=== PATIENT | male | born 1940 | race Caucasian/White ===

== ENCOUNTER 2017-09-28 10:14 | Inpatient (IN) | payer OTHER ==
[~2017-09-28] VITALS: Ht 177.8 cm; Wt 79.3 kg
[~2017-09-28 10:14] MED LIST: ADVIL,NUPRIN,M200 MG PO; ALTACE10 MG PO; BACTROBAN OINTM22 GM TP; BYSTOLIC10 MG PO; D3 + K2 DOTS 11 EACH PO; FISH OIL 1,0001 EAC7 PO; HYDROCHLOROTHIA25 MG PO; LEVAQUIN500 MG PO; LIPITOR40 MG PO; MEDROL DOSEPAK4 MG PO; METRO CREAM 0.745 GM TP; MULTI-VITAMIN1 EAC4 PO; NORVASC10 MG PO; PREDNISONE20 MG PO; TAMIFLU75 MG PO; TAMSULOSIN HCL0.4 MG PO; TRICOR145 MG PO
[2017-09-28 12:20] LABS: HEMATOCRIT 28.9 % (38.0-50.0); HEMOGLOBIN 10.3 G/DL (12.5-16.6); MCHC 35.6 G/DL (30.0-36.0); MCV 89.8 FL (86-99); RBC DIS.WIDTH-CV 15.3 % (11.8-14.6); RBC DIS.WIDTH-SD 50.7 % (39-53); RED BLOOD COUNT 3.22 M/uL (4.00-5.50); WHITE BLOOD COUNT 6.6 K/uL (4.1-10.2)
[2017-09-28 12:28] LABS: CHLORIDE 89 mEq/L (99-109); POTASSIUM 4.2 mEq/L (3.7-5.4)
[2017-09-28 12:30] LABS: GLUCOSE 111 mg/dL (70-99)
[2017-09-28 12:34] LABS: CREATININE 0.8 mg/dL (0.6-1.3); GFR ESTIMATE (CALCULATED) > 59 mL/min/ (58.99-99999)
[2017-09-28 12:35] LABS: UREA NITROGEN (BUN) 21 mg/dL (9-23)
[2017-09-28 12:37] LABS: SODIUM 124 mEq/L (136-147)
[2017-09-28 13:27] LABS: TROP-I INTERPRETATION NEGATIVE; TROPONIN-I 0.03 ng/mL (0.0-0.30)
[2017-09-28 13:29] LABS: BASOPHIL (%) 0.3 % (0-1); EOSINOPHIL (%) 0 % (0-5); IMM.PLATELET FRACTION 5.1 (1-7); IMMATURE GRANULOCYTE (%) 0.8 % (0.0-0.7); LYMPHOCYTE (%) 19.1 % (15-42); LYMPHOCYTE COUNT 1.3 K/uL (1.0-2.8); MONOCYTE (%) 1.5 % (3-12); MONOCYTE COUNT 0.1 K/uL (0-0.8); NEUTROPHIL (%) 78.3 % (45-76); NEUTROPHIL COUNT 5.1 K/uL (1.8-6.4); PLAT.SUFFICIENCY DECREASED; PLATELET COUNT 33 K/uL (156-360)
[2017-09-28 14:12] LABS: APPEARANCE CLEAR ((CLEAR)); BILIRUBIN NEGATIVE; BLOOD SMALL; COLOR YELLOW ((YELLOW)); GLUCOSE (STRIP) NEGATIVE; KETONES NEGATIVE; LEUKOCYTES NEGATIVE; NITRITE NEGATIVE; PROTEIN (STRIP) NEGATIVE; SPECIFIC GRAVITY 1.006 (1.000-1.030); UROBILINOGEN 0.2 MG/DL (0.2-1.0)
[2017-09-28 14:15] LABS: BACTERIA NONE SEEN /HPF; EPITHELIAL CELLS NONE SEEN /HPF; MUCUS NONE SEEN /LPF; RED BLOOD CELLS 0-5 /HPF (0-5); UCUL ADDED? NO; WHITE BLOOD CELLS 0-5 /HPF (0-5)
[2017-09-28] MEDS ORDERED: TYLENOL EXTRA500 MG PO (18:07)
[2017-09-28 20:47] VITALS: BP 129/59
[2017-09-28 23:41] VITALS: BP 126/60
[2017-09-29 03:51] VITALS: BP 128/60
[2017-09-29 06:38] LABS: MCH 31.3 PG (29.0-34.0); MCHC 34.6 G/DL (30.0-36.0); MCV 90.3 FL (86-99); RBC DIS.WIDTH-CV 15.4 % (11.8-14.6); RBC DIS.WIDTH-SD 51.1 % (39-53); RED BLOOD COUNT 2.88 M/uL (4.00-5.50); WHITE BLOOD COUNT 5.4 K/uL (4.1-10.2)
[2017-09-29 06:56] LABS: CHLORIDE 92 MEQ/L (99-109); CREATININE 0.8 MG/DL (0.6-1.3); GFR ESTIMATE (CALCULATED) > 59 mL/min/ (58.99-99999); GLUCOSE 105 mg/dL (70-99); POTASSIUM 3.4 MEQ/L (3.7-5.4); SODIUM 127 MEQ/L (136-147); UREA NITROGEN (BUN) 15 mg/dL (9-23)
[2017-09-29 07:18] LABS: BASOPHIL (%) 0.2 % (0-1); EOSINOPHIL (%) 0.2 % (0-5); IMM.PLATELET FRACTION 3.4 (1-7); IMMATURE GRANULOCYTE (%) 0.7 % (0.0-0.7); LYMPHOCYTE (%) 21.9 % (15-42); LYMPHOCYTE COUNT 1.2 K/uL (1.0-2.8); MONOCYTE (%) 1.1 % (3-12); MONOCYTE COUNT 0.1 K/uL (0-0.8); NEUTROPHIL (%) 75.9 % (45-76); NEUTROPHIL COUNT 4.1 K/uL (1.8-6.4); PLAT.SUFFICIENCY VERY DECREASED; PLATELET COUNT 30 K/uL (156-360)
[2017-09-29 08:12] VITALS: BP 129/60
[2017-09-29 12:14] VITALS: BP 103/55
[2017-09-29 15:12] VITALS: BP 97/53
[2017-09-29 19:33] VITALS: BP 99/53
[2017-09-30] VITALS (7 sets, daily range): BP systolic 103–137; BP diastolic 53–67
[2017-09-30 06:51] LABS: HEMATOCRIT 25.8 % (38.0-50.0); MCH 31.4 PG (29.0-34.0); MCHC 34.9 G/DL (30.0-36.0); MCV 89.9 FL (86-99); RBC DIS.WIDTH-CV 15.1 % (11.8-14.6); RBC DIS.WIDTH-SD 49.6 % (39-53); RED BLOOD COUNT 2.87 M/uL (4.00-5.50); WHITE BLOOD COUNT 5.6 K/uL (4.1-10.2)
[2017-09-30 07:16] LABS: ALBUMIN 2.5 G/DL (3.2-4.8); ALKALINE PHOSPHATASE 46 IU/L (3-129); ALT (GPT) 17 IU/L (3-49); AST (GOT) 19 IU/L (2-34); CHLORIDE 98 MEQ/L (99-109); CREATININE 0.6 MG/DL (0.6-1.3); DIRECT BILIRUBIN 0.2 mg/dL (0.0-0.3); GFR ESTIMATE (CALCULATED) > 59 mL/min/ (58.99-99999); GLUCOSE 145 mg/dL (70-99); LACTATE DEHYDROGENASE 272 IU/L (20-246); MAGNESIUM 1.7 mg/dl (1.3-2.7); SODIUM 131 MEQ/L (136-147); TOTAL PROTEIN 5.3 G/DL (6.4-8.3); UREA NITROGEN (BUN) 19 mg/dL (9-23)
[2017-09-30 07:17] LABS: POTASSIUM 4.2 MEQ/L (3.7-5.4); TOTAL BILIRUBIN 0.8 MG/DL (0.0-1.0)
[2017-09-30 07:34] LABS: ABS NEUTROPHIL COUNT 4.5; ANISOCYTOSIS 1+; ATYPICAL LYMPHOCYTE 1.8 %; BAND NEUTROPHILS 1.8 % (0-8.0); EOSINOPHIL ABS CT 0; IMM.PLATELET FRACTION 5.2 (1-7); MICROCYTOSIS 1+; PLAT.SUFFICIENCY DECREASED; PLATELET COUNT 35 K/uL (156-360); POIKILOCYTOSIS 2+; POLYCHROMASIA 1+; TEAR DROP CELLS 1+
[2017-09-30 07:38] LABS: SEG.NEUTROPHILS 79.4 % (46.0-76.0)
[2017-10-01 05:59] LABS: HEMATOCRIT 26.2 % (38.0-50.0); HEMOGLOBIN 8.9 G/DL (12.5-16.6); MCH 31.4 PG (29.0-34.0); MCV 92.6 FL (86-99); RBC DIS.WIDTH-CV 15.5 % (11.8-14.6); RBC DIS.WIDTH-SD 52.7 % (39-53); RED BLOOD COUNT 2.83 M/uL (4.00-5.50); WHITE BLOOD COUNT 4.9 K/uL (4.1-10.2)
[2017-10-01 06:17] LABS: CHLORIDE 99 MEQ/L (99-109); CREATININE 0.6 MG/DL (0.6-1.3); GFR ESTIMATE (CALCULATED) > 59 mL/min/ (58.99-99999); GLUCOSE 123 mg/dL (70-99); POTASSIUM 4.8 MEQ/L (3.7-5.4); SODIUM 132 MEQ/L (136-147); UREA NITROGEN (BUN) 17 mg/dL (9-23)
[2017-10-01 06:24] LABS: ABS NEUTROPHIL COUNT 3.7; ATYPICAL LYMPHOCYTE 2.6 %; EOSINOPHIL ABS CT 0; IMM.PLATELET FRACTION 3.9 (1-7); LYMPHOCYTES 19.8 % (15.0-45.0); MONOCYTES 1.7 % (0-9.0); PLAT.SUFFICIENCY VERY DECREASED; PLATELET COUNT 44 K/uL (156-360); SEG.NEUTROPHILS 75.9 % (46.0-76.0); SMUDGE CELLS 4.3
[2017-10-01 07:53] VITALS: BP 159/70
[2017-10-01 09:08] LABS: IMM.RETIC FRACTION 16.1 % (3-19); RETIC HGB EQUIVALENT 28.1 (28-36)
[2017-10-01 09:09] LABS: ALBUMIN 2.6 G/DL (3.2-4.8); ALKALINE PHOSPHATASE 48 IU/L (3-129); ALT (GPT) 20 IU/L (3-49); AST (GOT) 23 IU/L (2-34); TOTAL BILIRUBIN 0.9 MG/DL (0.0-1.0)
[2017-10-01 09:12] LABS: RETICULOCYTE COUNT 2.8 % (0.5-1.8)
[2017-10-01 14:27] LABS: HEMATOCRIT 26.2 % (38.0-50.0); MCH 31.5 PG (29.0-34.0); MCHC 34.4 G/DL (30.0-36.0); MCV 91.6 FL (86-99); PLATELET COUNT 53 K/uL (156-360); RBC DIS.WIDTH-CV 15.5 % (11.8-14.6); RBC DIS.WIDTH-SD 52.1 % (39-53); RED BLOOD COUNT 2.86 M/uL (4.00-5.50); WHITE BLOOD COUNT 4.2 K/uL (4.1-10.2)
[2017-10-01 14:39] LABS: INTER. NORMALIZED RATIO 1.2
[2017-10-01 14:42] LABS: PTT 27.9 SEC (25-37)
[2017-10-01 14:45] LABS: DIRECT BILIRUBIN 0.2 mg/dL (0.0-0.3); TOTAL BILIRUBIN 0.9 MG/DL (0.0-1.0)
[2017-10-01 15:43] VITALS: BP 106/54
[2017-10-01 15:47] LABS: ABS NEUTROPHIL COUNT 3.8; ANISOCYTOSIS 1+; BAND NEUTROPHILS 10.4 % (0-8.0); EOSINOPHIL ABS CT 0; HYPOCHROMASIA 2+; MICROCYTOSIS 1+; MONOCYTES 0.9 % (0-9.0); PLAT.SUFFICIENCY DECREASED; POIKILOCYTOSIS 2+; TEAR DROP CELLS 1+
[2017-10-02 00:13] VITALS: BP 128/63
[2017-10-02 06:49] LABS: HEMATOCRIT 23.8 % (38.0-50.0); HEMOGLOBIN 8.1 G/DL (12.5-16.6); MCH 31.9 PG (29.0-34.0); MCV 93.7 FL (86-99); RBC DIS.WIDTH-CV 15.4 % (11.8-14.6); RBC DIS.WIDTH-SD 53.7 % (39-53); RED BLOOD COUNT 2.54 M/uL (4.00-5.50); WHITE BLOOD COUNT 3.4 K/uL (4.1-10.2)
[2017-10-02 07:01] VITALS: BP 147/67
[2017-10-02 07:15] LABS: CHLORIDE 101 MEQ/L (99-109); CREATININE 0.7 MG/DL (0.6-1.3); GFR ESTIMATE (CALCULATED) > 59 mL/min/ (58.99-99999); POTASSIUM 4.4 MEQ/L (3.7-5.4); SODIUM 136 MEQ/L (136-147); UREA NITROGEN (BUN) 20 mg/dL (9-23)
[2017-10-02 07:18] LABS: GLUCOSE 82 mg/dL (70-99)
[2017-10-02 07:23] LABS: BASOPHIL (%) 0 % (0-1); EOSINOPHIL (%) 0 % (0-5); IMM.PLATELET FRACTION 2.3 (1-7); IMMATURE GRANULOCYTE (%) 0.3 % (0.0-0.7); LYMPHOCYTE (%) 19.2 % (15-42); LYMPHOCYTE COUNT 0.7 K/uL (1.0-2.8); MONOCYTE (%) 1.7 % (3-12); MONOCYTE COUNT 0.1 K/uL (0-0.8); NEUTROPHIL (%) 78.8 % (45-76); NEUTROPHIL COUNT 2.7 K/uL (1.8-6.4); PLAT.SUFFICIENCY DECREASED; PLATELET COUNT 38 K/uL (156-360)
[2017-10-02 15:11] VITALS: BP 133/62
[2017-10-02 23:33] VITALS: BP 137/63
[2017-10-03] VITALS (7 sets, daily range): BP systolic 110–140; BP diastolic 56–68
[2017-10-03 06:30] LABS: HEMATOCRIT 22.6 % (38.0-50.0); HEMOGLOBIN 7.4 G/DL (12.5-16.6); MCH 30.3 PG (29.0-34.0); MCHC 32.7 G/DL (30.0-36.0); MCV 92.6 FL (86-99); RBC DIS.WIDTH-CV 15.3 % (11.8-14.6); RBC DIS.WIDTH-SD 52.2 % (39-53); RED BLOOD COUNT 2.44 M/uL (4.00-5.50); WHITE BLOOD COUNT 2.3 K/uL (4.1-10.2)
[2017-10-03 06:53] LABS: CHLORIDE 100 MEQ/L (99-109); CREATININE 0.7 MG/DL (0.6-1.3); GFR ESTIMATE (CALCULATED) > 59 mL/min/ (58.99-99999); POTASSIUM 4.4 MEQ/L (3.7-5.4); SODIUM 136 MEQ/L (136-147); UREA NITROGEN (BUN) 18 mg/dL (9-23)
[2017-10-03 07:04] LABS: GLUCOSE 165 mg/dL (70-99)
[2017-10-03 07:14] LABS: ABS NEUTROPHIL COUNT 1.8; ANISOCYTOSIS 1+; EOSINOPHIL ABS CT 0; HYPOCHROMASIA 1+; IMM.PLATELET FRACTION 2.3 (1-7); LYMPHOCYTES 22.6 % (15.0-45.0); MICROCYTOSIS 1+; PLAT.SUFFICIENCY VERY DECREASED; PLATELET COUNT 27 K/uL (156-360); POIKILOCYTOSIS 2+; POLYCHROMASIA 1+; SEG.NEUTROPHILS 77.4 % (46.0-76.0); SPHEROCYTES 1+; TEAR DROP CELLS 1+
[2017-10-03 08:23] LABS: ALBUMIN 2.2 G/DL (3.2-4.8); ALKALINE PHOSPHATASE 40 IU/L (3-129); ALT (GPT) 16 IU/L (3-49); AST (GOT) 29 IU/L (2-34)
[2017-10-03 08:24] LABS: TOTAL BILIRUBIN 1.1 MG/DL (0.0-1.0); TOTAL PROTEIN 4.2 G/DL (6.4-8.3)
[2017-10-04 05:59] LABS: HEMATOCRIT 25.8 % (38.0-50.0); HEMOGLOBIN 8.9 G/DL (12.5-16.6); MCH 32.1 PG (29.0-34.0); MCHC 34.5 G/DL (30.0-36.0); MCV 93.1 FL (86-99); RBC DIS.WIDTH-SD 51.4 % (39-53); RED BLOOD COUNT 2.77 M/uL (4.00-5.50); WHITE BLOOD COUNT 4.1 K/uL (4.1-10.2)
[2017-10-04 06:32] LABS: CHLORIDE 102 MEQ/L (99-109); CREATININE 0.7 MG/DL (0.6-1.3); GFR ESTIMATE (CALCULATED) > 59 mL/min/ (58.99-99999); GLUCOSE 182 mg/dL (70-99); POTASSIUM 4.2 MEQ/L (3.7-5.4); SODIUM 136 MEQ/L (136-147); UREA NITROGEN (BUN) 27 mg/dL (9-23)
[2017-10-04 06:39] LABS: ABS NEUTROPHIL COUNT 3.5; ANISOCYTOSIS 1+; ATYPICAL LYMPHOCYTE 2.6 %; BAND NEUTROPHILS 1.8 % (0-8.0); BASOPHILS 0.9 %; EOSINOPHIL ABS CT 0; HYPOCHROMASIA 1+; LYMPHOCYTES 11.4 % (15.0-45.0); MICROCYTOSIS 1+; OVALOCYTES 1+; PLAT.SUFFICIENCY DECREASED; POIKILOCYTOSIS 2+; POLYCHROMASIA 1+; SEG.NEUTROPHILS 83.3 % (46.0-76.0); TEAR DROP CELLS 1+; TOXIC GRANULATION 1+
[2017-10-04 06:40] LABS: PLATELET COUNT 37 K/uL (156-360)
[2017-10-04 06:58] VITALS: BP 138/63
[2017-10-04 15:11] VITALS: BP 138/63
[2017-10-05 00:16] VITALS: BP 125/58
[2017-10-05 07:30] LABS: HEMATOCRIT 27.3 % (38.0-50.0); HEMOGLOBIN 9.3 G/DL (12.5-16.6); MCH 31.7 PG (29.0-34.0); MCHC 34.1 G/DL (30.0-36.0); MCV 93.2 FL (86-99); RBC DIS.WIDTH-CV 15.3 % (11.8-14.6); RBC DIS.WIDTH-SD 52.8 % (39-53); RED BLOOD COUNT 2.93 M/uL (4.00-5.50)
[2017-10-05 07:53] VITALS: BP 138/67
[2017-10-05 07:57] LABS: CHLORIDE 100 MEQ/L (99-109); CREATININE 0.8 MG/DL (0.6-1.3); GFR ESTIMATE (CALCULATED) > 59 mL/min/ (58.99-99999); POTASSIUM 4.2 MEQ/L (3.7-5.4); SODIUM 136 MEQ/L (136-147); UREA NITROGEN (BUN) 27 mg/dL (9-23)
[2017-10-05 07:58] LABS: GLUCOSE 116 mg/dL (70-99)
[2017-10-05 08:14] LABS: BASOPHIL (%) 0 % (0-1); EOSINOPHIL (%) 0 % (0-5); IMM.PLATELET FRACTION 3.3 (1-7); IMMATURE GRANULOCYTE (%) 0.5 % (0.0-0.7); LYMPHOCYTE (%) 25.8 % (15-42); MONOCYTE COUNT 0.1 K/uL (0-0.8); NEUTROPHIL (%) 71.7 % (45-76); NEUTROPHIL COUNT 2.9 K/uL (1.8-6.4); PLAT.SUFFICIENCY DECREASED; PLATELET COUNT 37 K/uL (156-360)
[2017-10-05 16:00] VITALS: BP 129/64
[2017-10-05 20:21] VITALS: BP 120/58
[2017-10-06] VITALS (9 sets, daily range): BP systolic 107–161; BP diastolic 57–69
[2017-10-06 09:12] LABS: BASOPHIL (%) 0.2 % (0-1); EOSINOPHIL (%) 0 % (0-5); IMMATURE GRANULOCYTE (%) 0.7 % (0.0-0.7); LYMPHOCYTE (%) 26.4 % (15-42); LYMPHOCYTE COUNT 1.1 K/uL (1.0-2.8); MCH 30.9 PG (29.0-34.0); MCHC 33.3 G/DL (30.0-36.0); MCV 92.8 FL (86-99); MONOCYTE (%) 3.2 % (3-12); MONOCYTE COUNT 0.1 K/uL (0-0.8); NEUTROPHIL (%) 69.5 % (45-76); NEUTROPHIL COUNT 2.8 K/uL (1.8-6.4); RBC DIS.WIDTH-CV 15.3 % (11.8-14.6); RBC DIS.WIDTH-SD 52.1 % (39-53); RED BLOOD COUNT 2.91 M/uL (4.00-5.50); WHITE BLOOD COUNT 4.1 K/uL (4.1-10.2)
[2017-10-06 09:38] LABS: IMM.PLATELET FRACTION 4.4 (1-7); PLAT.SUFFICIENCY VERY DECREASED
[2017-10-06 10:37] LABS: PLATELET COUNT 21 K/uL (156-360)
[2017-10-07 00:16] VITALS: BP 136/63
[2017-10-07 07:09] VITALS: BP 148/64
[2017-10-07 09:30] LABS: ALBUMIN 2.6 G/DL (3.2-4.8); ALKALINE PHOSPHATASE 48 IU/L (3-129); ALT (GPT) 17 IU/L (3-49); AST (GOT) 29 IU/L (2-34); CHLORIDE 97 MEQ/L (99-109); CREATININE 0.8 MG/DL (0.6-1.3); GFR ESTIMATE (CALCULATED) > 59 mL/min/ (58.99-99999); GLUCOSE 108 mg/dL (70-99); POTASSIUM 3.7 MEQ/L (3.7-5.4); SODIUM 136 MEQ/L (136-147); TOTAL BILIRUBIN 1.4 MG/DL (0.0-1.0); TOTAL PROTEIN 4.5 G/DL (6.4-8.3); UREA NITROGEN (BUN) 27 mg/dL (9-23)
[2017-10-07 10:31] LABS: HEMATOCRIT 23.1 % (38.0-50.0); HEMOGLOBIN 7.6 G/DL (12.5-16.6); MCH 30.6 PG (29.0-34.0); MCHC 32.9 G/DL (30.0-36.0); MCV 93.1 FL (86-99); RBC DIS.WIDTH-CV 15.2 % (11.8-14.6); RED BLOOD COUNT 2.48 M/uL (4.00-5.50); WHITE BLOOD COUNT 3.9 K/uL (4.1-10.2)
[2017-10-07 10:48] LABS: IMM.PLATELET FRACTION 4.8 (1-7); PLAT.SUFFICIENCY DECREASED
[2017-10-07 10:54] LABS: PLATELET COUNT 21 K/uL (156-360)
[2017-10-07 15:06] VITALS: BP 128/62
[2017-10-08 00:50] VITALS: BP 129/92
[2017-10-08 06:46] LABS: HEMATOCRIT 21.7 % (38.0-50.0); HEMOGLOBIN 7.5 G/DL (12.5-16.6); MCH 32.2 PG (29.0-34.0); MCHC 34.6 G/DL (30.0-36.0); MCV 93.1 FL (86-99); RBC DIS.WIDTH-CV 15.5 % (11.8-14.6); RED BLOOD COUNT 2.33 M/uL (4.00-5.50); WHITE BLOOD COUNT 3.8 K/uL (4.1-10.2)
[2017-10-08 06:57] LABS: IMM.PLATELET FRACTION 4.8 (1-7); PLAT.SUFFICIENCY VERY DECREASED
[2017-10-08 07:07] LABS: PLATELET COUNT 15 K/uL (156-360)
[2017-10-08 07:25] LABS: TOTAL BILIRUBIN 1.3 MG/DL (0.0-1.0)
[2017-10-08 07:30] VITALS: BP 140/63
[2017-10-08 15:49] VITALS: BP 129/67
[2017-10-08 23:40] VITALS: BP 115/55
[2017-10-09 07:23] LABS: HEMATOCRIT 23.6 % (38.0-50.0); HEMOGLOBIN 8.1 G/DL (12.5-16.6); MCH 31.9 PG (29.0-34.0); MCHC 34.3 G/DL (30.0-36.0); MCV 92.9 FL (86-99); RBC DIS.WIDTH-CV 15.6 % (11.8-14.6); RBC DIS.WIDTH-SD 52.9 % (39-53); RED BLOOD COUNT 2.54 M/uL (4.00-5.50); WHITE BLOOD COUNT 4.3 K/uL (4.1-10.2)
[2017-10-09 07:26] LABS: PLAT.SUFFICIENCY VERY DECREASED
[2017-10-09 07:48] VITALS: BP 133/63
[2017-10-09 08:07] LABS: PLATELET COUNT 12 K/uL (156-360)
[2017-10-09 16:00] VITALS: BP 134/61
[2017-10-09 23:46] VITALS: BP 125/68
[2017-10-10 03:12] VITALS: BP 124/70
[2017-10-10 07:22] VITALS: BP 119/65
[2017-10-10 07:23] LABS: HEMOGLOBIN 7.2 G/DL (12.5-16.6); MCH 30.1 PG (29.0-34.0); MCHC 32.7 G/DL (30.0-36.0); MCV 92.1 FL (86-99); NRBC (%) 0.4 /100 WBC (0-0); RBC DIS.WIDTH-CV 15.2 % (11.8-14.6); RBC DIS.WIDTH-SD 50.9 % (39-53); RED BLOOD COUNT 2.39 M/uL (4.00-5.50); WHITE BLOOD COUNT 5.1 K/uL (4.1-10.2)
[2017-10-10 07:58] LABS: IMM.PLATELET FRACTION 7.8 (1-7); PLAT.SUFFICIENCY VERY DECREASED
[2017-10-10 08:00] LABS: PLATELET COUNT 13 K/uL (156-360)
== END 2017-10-10 14:40 | disposition designated cancer center or children's hospital, planned readmission (85) | DRG 166 ==
LOC: EME 10:14 → EDOF 16:00 → 5SOUTH 16:00 → ENRESERV 16:12 → 5SOUTH 20:11
PROVIDERS: Hospitalist; Internal Medicine
DX: J96.01 Acute respiratory failure with hypoxia (principal); J18.9 Pneumonia, unspecified organism; D61.811 Other drug-induced pancytopenia; J81.0 Acute pulmonary edema; C91.10 Chronic lymphocytic leukemia of B-cell type not having achieved remission; B37.0 Candidal stomatitis; D58.9 Hereditary hemolytic anemia, unspecified; E87.1 Hypo-osmolality and hyponatremia; I10 Essential (primary) hypertension; E78.5 Hyperlipidemia, unspecified; R04.0 Epistaxis; E86.0 Dehydration; R91.1 Solitary pulmonary nodule; D75.9 Disease of blood and blood-forming organs, unspecified; Z91.013 Allergy to seafood; Z79.52 Long term (current) use of systemic steroids; Z79.899 Other long term (current) drug therapy
CPT/HCPCS: 36415; 71010; 71020; 71275; 80048; 80053; 80076; 80202; 81003; 82247; 82248; 83010 90; 83605; 83615; 83735; 83880; 84484; 85007; 85025; 85025 91; 85027; 85060; 85610; 85730; 86850; 86880; 86900; 86901; 86920; 87040; 87070; 87102; 87106; 87116; 87205; 87206; 87278; 87449; 87502; 88108; 93005; 94640; 94640 76; 94760; 94799; 97530 GO; 99202; 99281; 99285; G8987 GO CJ; G8988 GO CH; J0456; J0696; J1200; J1644; J1956; J2250; J3370; J7030; J7512; P9016; P9035; P9037; S0028

== ENCOUNTER → 2017-10-26 | Outpatient (CLI) | payer OTHER ==
[~2017-10-26] MED LIST changes: +BACTRIM,SEPT1 TABLET PO; +CRESTOR20 MG PO; +NOXAFIL100 MG PO; +PROTONIX40 MG PO; +TYLENOL EXTRA500 MG PO
== END | disposition home or self-care (01) ==
LOC: PICC 08:00
DX: B25.9 Cytomegaloviral disease, unspecified (principal)

== ENCOUNTER 2017-12-21 14:31 | Emergency (ER) | payer OTHER ==
[~2017-12-21] VITALS: Ht 180.3 cm; Wt 87.3 kg
[~2017-12-21 14:31] MED LIST changes: +VALCYTE450 MG PO
[2017-12-21 16:47] LABS: ALBUMIN 3.2 g/dL (3.2-4.8); CHLORIDE 102 mEq/L (99-109); POTASSIUM 3.9 mEq/L (3.7-5.4)
[2017-12-21 16:48] LABS: HEMATOCRIT 33.8 % (38.0-50.0); HEMOGLOBIN 11.4 G/DL (12.5-16.6); IMM.PLATELET FRACTION 6.7 (1-7); MCH 31.2 PG (29.0-34.0); MCHC 33.7 G/DL (30.0-36.0); MCV 92.6 FL (86-99); RBC DIS.WIDTH-CV 14.1 % (11.8-14.6); RBC DIS.WIDTH-SD 48.2 % (39-53); RED BLOOD COUNT 3.65 M/uL (4.00-5.50); SODIUM 139 mEq/L (136-147); WHITE BLOOD COUNT 3.8 K/uL (4.1-10.2)
[2017-12-21 16:50] LABS: GLUCOSE 86 mg/dL (70-99); TOTAL PROTEIN 6.9 g/dL (6.4-8.3)
[2017-12-21 16:52] LABS: TOTAL BILIRUBIN 0.5 mg/dL (0.0-1.0)
[2017-12-21 16:53] LABS: ALKALINE PHOSPHATASE 83 IU/L (3-129); CREATININE 0.7 mg/dL (0.6-1.3); GFR ESTIMATE (CALCULATED) > 59 mL/min/ (58.99-99999)
[2017-12-21 16:54] LABS: UREA NITROGEN (BUN) 11 mg/dL (9-23)
[2017-12-21 16:55] LABS: AST (GOT) 27 IU/L (2-34)
[2017-12-21 16:56] LABS: ALT (GPT) 9 IU/L (3-49)
[2017-12-21 16:59] LABS: TROP-I INTERPRETATION NEGATIVE; TROPONIN-I 0.03 ng/mL (0.0-0.30)
[2017-12-21 18:23] LABS: PLATELET COUNT 45 K/uL (156-360)
[2017-12-21 18:24] LABS: PLAT.SUFFICIENCY VERY DECREASED
[2017-12-21 21:01] VITALS: BP 201/113
== END 2017-12-21 21:15 | disposition home or self-care (01) ==
LOC: EME 14:31
PROVIDERS: Emergency Medicine
DX: I10 Essential (primary) hypertension (principal); M54.12 Radiculopathy, cervical region; C91.10 Chronic lymphocytic leukemia of B-cell type not having achieved remission; E78.5 Hyperlipidemia, unspecified; Z87.442 Personal history of urinary calculi
CPT/HCPCS: 72125; 80053; 84484; 85027; 99281; 99285; J0360